=== PATIENT | female | born 1950 | race African-American/Black ===

== ENCOUNTER → 2017-04-22 | Outpatient (CLI) | payer MEDICARE, MEDICAID ==
[~2017-04-22] MED LIST: ALBU8.5H3 INH; ATEN100T PO; ATEN25TA PO; BUSP15TA PO; CEFD300C37 PO; DOXY100C PO; FELO10TA PO; FLEXERIL; GABA-826 PO; GABA300C10 PO; ISOS1POW2 PO; LORA0.5T PO; LORA1TAB PO; MARTAZAPINE PO; OXYC1TAB9 PO; PRED20TA PO; RAME8TAB8 PO; RANI-276 PO; SIMV20TA3 PO; SIMV5TAB5 PO; SPIR25TA3 PO
== END | disposition home or self-care (01) ==
LOC: CFH 09:00
PROVIDERS: ATTEND Family Medicine
DX: I25.10 Atherosclerotic heart disease of native coronary artery without angina pectoris (principal); I34.0 Nonrheumatic mitral (valve) insufficiency; I10 Essential (primary) hypertension
CPT/HCPCS: 93306

== ENCOUNTER → 2017-11-25 | Outpatient (CLI) | payer MEDICARE, MEDICAID ==
[~2017-11-25] MED LIST changes: -ALBU8.5H3 INH; +ALBU8.5H8 INH; +RAME8TAB19 PO; -RAME8TAB8 PO
[2017-11-25 13:04] LABS: ALBUMIN 3.7 g/dL (3.4-5.0); ANION GAP 5 mmol/L (5-15); CALCIUM 9.3 mg/dL (8.5-10.1); CHLORIDE 99 mmol/L (98-107)
[2017-11-25 13:10] LABS: ALANINE AMINOTRANSFERASE 11 U/L (12-78); ALKALINE PHOSPHATASE 86 U/L (45-117); BILIRUBIN,TOTAL 0.4 mg/dL (0.2-1.0); CHOL/HDL RATIO 3.4; CHOLESTEROL, TOTAL 128 mg/dL (140-239); CREATININE 0.94 mg/dL (0.55-1.02); HDL CHOL % 30 % (28-40); HDL CHOLESTEROL (DIRECT) 38 mg/dL (40-60); LDL CHOLESTEROL,CALCULATED 73 mg/dL (54-169); LDL/HDL RATIO 1.9 (0.5-3.0); TOTAL PROTEIN 8.1 g/dL (6.4-8.2); TRIGLYCERIDES 85 mg/dL (50-200); VLDL CHOLESTEROL 17 mg/dL (0-25)
[2017-11-25 13:11] LABS: BASOPHILS # (AUTO) 0.03 x10^3/uL (0-0.1); BASOPHILS % (AUTO) 0 % (0-1); EOSINOPHILS # (AUTO) 0.33 x10^3/uL (0-0.4); EOSINOPHILS % (AUTO) 2 % (1-7); LYMPHOCYTES # (AUTO) 2.86 x10^3/uL (1-3.4); LYMPHOCYTES % (AUTO) 20 % (22-44); MD NO; MEAN CORPUSCULAR HEMOGLOBIN 27.6 pg (27.0-34.8); MEAN PLATELET VOLUME 8.5 fL (7.4-10.4); MONOCYTES # (AUTO) 0.43 x10^3/uL (0.2-0.8); MONOCYTES % (AUTO) 3 % (2-9); NEUTROPHILS # (AUTO) 10.77 x10^3/uL (1.8-6.8); NEUTROPHILS % (AUTO) 75 % (42-75); PLATELET COUNT 288 x10^3/uL (130-400); RED BLOOD COUNT 6.64 x10^6/uL (3.82-5.3); RED CELL DISTRIBUTION WIDTH 17.5 % (9.6-15.2)
[2017-11-25 13:23] LABS: HEMOGLOBIN A1C 6.6 % (4.2-6.3)
== END | disposition home or self-care (01) ==
LOC: CFH 11:11
PROVIDERS: ATTEND Family Medicine
DX: E11.42 Type 2 diabetes mellitus with diabetic polyneuropathy (principal); E78.5 Hyperlipidemia, unspecified; I10 Essential (primary) hypertension
CPT/HCPCS: 36415; 80053; 80061; 82043; 83036; 85025

== ENCOUNTER 2018-11-12 05:44 | Inpatient (IN) | payer MEDICARE, MEDICAID ==
[~2018-11-12] VITALS: Ht 160 cm; Wt 95.1 kg
[~2018-11-12 05:44] MED LIST changes: +OXYC-432 PO; -OXYC1TAB9 PO; -RANI-276 PO; +RANI-448 PO; +SIMV5TAB14 PO; -SIMV5TAB5 PO; -SPIR25TA3 PO; +SPIR25TA5 PO
[2018-11-12] MEDS ORDERED: SODIUM CHLORIDE FLUSH 10ML SYR IVF ONE (06:00)
[2018-11-12] MEDS ORDERED: ONDANSETRON 2MG/ML, 2ML IVPush ONE (06:00)
--- NOTE | 2018-11-12 06:09 | NUR ---
PT TAKEN TO CT AT THIS TIME WITH TECH.
[2018-11-12] MEDS ORDERED: MORPHINE SULFATE 4 MG/ML, 1ML ONE ×2 (06:12→07:56)
[2018-11-12] MEDS ORDERED: ONDANSETRON 2MG/ML, 2ML ONE (06:12)
[2018-11-12] MEDS: MORPHINE SULFATE 4 MG/ML, 1ML IVPush PRN ×2 (06:15→07:59)
--- NOTE | 2018-11-12 06:17 | NUR ---
PT MEDICATED FOR NAUSEA/PAIN. VSS AND SPOUSE AT BEDSIDE.
[2018-11-12] MEDS ORDERED: OMNIPAQUE 350 MG/ML, 100ML BOTTLE ONE (06:23)
[2018-11-12] MEDS ORDERED: SUVO20TA PO (06:31)
[2018-11-12 06:45] LABS: BASOPHILS # (AUTO) 0.08 x10^3/uL (0-0.1); BASOPHILS % (AUTO) 1 % (0-1); EOSINOPHILS % (AUTO) 2 % (1-7); LYMPHOCYTES # (AUTO) 1.54 x10^3/uL (1-3.4); LYMPHOCYTES % (AUTO) 10 % (22-44); MD NO; MEAN CORPUSCULAR HEMOGLOBIN 28.3 pg (27.0-34.8); MEAN CORPUSCULAR VOLUME 88.4 fL (80-100); MEAN PLATELET VOLUME 7.7 fL (7.4-10.4); MONOCYTES # (AUTO) 0.72 x10^3/uL (0.2-0.8); MONOCYTES % (AUTO) 5 % (2-9); NEUTROPHILS % (AUTO) 82 % (42-75); PLATELET COUNT 383 x10^3/uL (130-400); RED BLOOD COUNT 5.46 x10^6/uL (3.82-5.3); RED CELL DISTRIBUTION WIDTH 16.5 % (9.6-15.2)
[2018-11-12 06:57] LABS: INTERNATIONAL NORMALIZED RATIO 1.06 (0.93-1.1); PROTHROMBIN TIME 11.2 Seconds (9.6-11.5)
[2018-11-12 06:58] LABS: ALANINE AMINOTRANSFERASE 10 U/L (12-78); ALBUMIN 2.9 g/dL (3.4-5.0); ANION GAP 6 mmol/L (5-15); CALCIUM 8.8 mg/dL (8.5-10.1); CHLORIDE 100 mmol/L (98-107); CREATININE 0.85 mg/dL (0.55-1.02)
[2018-11-12 07:03] LABS: ALKALINE PHOSPHATASE 75 U/L (45-117); BILIRUBIN,TOTAL 0.2 mg/dL (0.2-1.0); TOTAL PROTEIN 6.7 g/dL (6.4-8.2); TROPONIN I < 0.015 ng/mL (0.000-0.045)
--- NOTE | 2018-11-12 07:10 | NUR ---
bedside report from Marina. Pt has no needs at this time. Awaiting labs. Will monitor.
--- NOTE | 2018-11-12 09:17 | NUR ---
in room for recheck. Pt told she has mass on her ovary. Pt and friend are tearful. Attempted to reassure them. Will be admit. Awaiting bed assignment. Report to Silvia.
--- NOTE | 2018-11-12 09:18 | NUR ---
ASSUMED CARE OF PT. PT AND SIGNIFICANT OTHER ANXIOUS ABOUT DX, DISCUSSED OUTCOMES WITH PT AND SO. WAITING ADMIT CURRENTLY PAIN UNDER CONTROL
[2018-11-12] MEDS ORDERED: ENALAPRILAT 1.25 MG/ML, 2ML IVPush PRN (10:00)
[2018-11-12] MEDS ORDERED: ONDANSETRON 2MG/ML, 2ML IVPush PRN (10:00)
[2018-11-12] MEDS ORDERED: morphine SULFATE 10 MG/ML, 1ML IVPush PRN (10:00)
[2018-11-12] MEDS ORDERED: ACETAMINOPHEN 325 MG TABLET PO PRN (10:00)
[2018-11-12 10:09] LABS: HCT (SEDRATE) 49.3 % (34.6-47.8)
[2018-11-12 10:23] LABS: FREE T4 (FREE THYROXINE) 1.11 ng/dL (0.76-1.46); TROPONIN I < 0.015 ng/mL (0.000-0.045)
[2018-11-12] MEDS: BUSPIRONE HCL 15 MG PO SCH ×3 (11:00→21:00)
[2018-11-12 11:30] VITALS: BP 134/80
[2018-11-12] MEDS ORDERED: ALBUTEROL SULFATE 2.5 MG/3 ML NPPB PRN (11:30)
[2018-11-12] MEDS: ASPIRIN 325 MG TABLET PO SCH (13:13)
[2018-11-12] MEDS: SODIUM CHLORIDE 0.9% 1,000 ML IV SCH ×2 (13:13→21:47)
[2018-11-12] MEDS: KETOROLAC 30 MG/1 ML IV PRN ×2 (13:14→19:42)
[2018-11-12] MEDS: HYDROcodone/APAP 5/325 TABLET PO PRN ×3 (13:14→21:45)
[2018-11-12] MEDS: ENOXAPARIN 40 MG/0.4 ML SQ SCH (13:15)
[2018-11-12 14:53] LABS: MICROSCOPIC NOT IND
[2018-11-12 15:00] LABS: CULTURE INDICATED? NO
[2018-11-12] MEDS: LORazepam 0.5MG TABLET PO SCH ×2 (16:00→21:00)
[2018-11-12 16:18] LABS: RAPID INFLUENZA A Negative (Negative); RAPID INFLUENZA B Negative (Negative)
[2018-11-12] MEDS: GABAPENTIN 300 MG CAPSULE PO SCH ×2 (17:04→21:46)
[2018-11-12 18:47] VITALS: BP 117/71
[2018-11-12 20:31] LABS: TROPONIN I < 0.015 ng/mL (0.000-0.045)
[2018-11-12] MEDS: MIRTAZAPINE 30 MG TAB.RAPDIS PO SCH (21:45)
[2018-11-12] MEDS: ATORVASTATIN 40 MG TABLET PO SCH (21:46)
[2018-11-13 01:21] VITALS: BP 136/83
[2018-11-13] MEDS: KETOROLAC 30 MG/1 ML IV PRN ×3 (01:51→14:38)
[2018-11-13] MEDS: SENNA/DOCUSATE TABLET PO PRN ×2 (01:51→08:39)
[2018-11-13] MEDS: HYDROcodone/APAP 5/325 TABLET PO PRN ×5 (01:51→20:14)
[2018-11-13 05:33] LABS: BASOPHILS # (AUTO) 0.06 x10^3/uL (0-0.1); BASOPHILS % (AUTO) 1 % (0-1); EOSINOPHILS # (AUTO) 0.49 x10^3/uL (0-0.4); EOSINOPHILS % (AUTO) 5 % (1-7); LYMPHOCYTES # (AUTO) 2.58 x10^3/uL (1-3.4); LYMPHOCYTES % (AUTO) 25 % (22-44); MD NO; MEAN CORPUSCULAR HEMOGLOBIN 28.5 pg (27.0-34.8); MEAN CORPUSCULAR HGB CONC 31.8 g/dL (32.4-35.8); MEAN CORPUSCULAR VOLUME 89.6 fL (80-100); MEAN PLATELET VOLUME 7.7 fL (7.4-10.4); MONOCYTES # (AUTO) 0.57 x10^3/uL (0.2-0.8); MONOCYTES % (AUTO) 6 % (2-9); NEUTROPHILS # (AUTO) 6.69 x10^3/uL (1.8-6.8); NEUTROPHILS % (AUTO) 64 % (42-75); PLATELET COUNT 366 x10^3/uL (130-400); RED BLOOD COUNT 5.09 x10^6/uL (3.82-5.3); RED CELL DISTRIBUTION WIDTH 17.1 % (9.6-15.2)
[2018-11-13 05:40] LABS: ALBUMIN 2.8 g/dL (3.4-5.0); CALCIUM 8.7 mg/dL (8.5-10.1); CHLORIDE 103 mmol/L (98-107)
[2018-11-13 05:56] LABS: ALANINE AMINOTRANSFERASE 9 U/L (12-78); ALKALINE PHOSPHATASE 71 U/L (45-117); ANION GAP 6 mmol/L (5-15); BILIRUBIN,TOTAL 0.3 mg/dL (0.2-1.0); CREATININE 0.76 mg/dL (0.55-1.02); TOTAL PROTEIN 6.5 g/dL (6.4-8.2)
[2018-11-13] MEDS: BUSPIRONE HCL 15 MG PO SCH ×4 (06:00→20:01)
[2018-11-13] MEDS: ASPIRIN 325 MG TABLET PO SCH (06:46)
[2018-11-13 07:14] VITALS: BP 125/77
[2018-11-13] MEDS ORDERED: AMLO-150 PO (08:34)
[2018-11-13] MEDS ORDERED: FEXO180T15 PO (08:35)
[2018-11-13] MEDS: ATENOLOL 100 MG TABLET PO SCH (08:39)
[2018-11-13] MEDS: GABAPENTIN 300 MG CAPSULE PO SCH ×3 (08:39→20:14)
[2018-11-13] MEDS: LORazepam 0.5MG TABLET PO SCH ×3 (08:39→20:14)
[2018-11-13] MEDS: ENOXAPARIN 40 MG/0.4 ML SQ SCH (08:39)
[2018-11-13] MEDS ORDERED: FELODIPINE 10 MG PO SCH (09:00)
[2018-11-13] MEDS ORDERED: CETIRIZINE 10 MG TABLET ONE (09:08)
[2018-11-13] MEDS: AMLODIPINE 5 MG TABLET PO SCH (09:10)
[2018-11-13] MEDS: CETIRIZINE 10 MG TABLET PO SCH (09:10)
[2018-11-13] MEDS ORDERED: REGADENOSON 0.4 MG/5 ML SYRINGE ONE (09:17)
[2018-11-13] MEDS: MAGNESIUM HYDROXIDE 8%, 30ML UDC PO PRN (11:31)
[2018-11-13] MEDS: CYCLOBENZAPRINE 10 MG TABLET PO PRN (14:38)
[2018-11-13 15:37] VITALS: BP 120/80
[2018-11-13] MEDS ORDERED: LORazepam 2 MG/ML, 1ML IVPush ONE (17:00)
[2018-11-13 19:44] VITALS: BP 118/69
[2018-11-13] MEDS: MIRTAZAPINE 30 MG TAB.RAPDIS PO SCH (20:14)
[2018-11-13] MEDS: ATORVASTATIN 40 MG TABLET PO SCH (20:14)
[2018-11-14] MEDS: HYDROcodone/APAP 5/325 TABLET PO PRN ×6 (00:09→22:50)
[2018-11-14] MEDS: KETOROLAC 30 MG/1 ML IV PRN ×3 (00:09→19:20)
[2018-11-14 02:15] VITALS: BP 134/66
[2018-11-14 05:14] LABS: BASOPHILS # (AUTO) 0.02 x10^3/uL (0-0.1); BASOPHILS % (AUTO) 0 % (0-1); EOSINOPHILS % (AUTO) 5 % (1-7); LYMPHOCYTES # (AUTO) 2.64 x10^3/uL (1-3.4); LYMPHOCYTES % (AUTO) 28 % (22-44); MD NO; MEAN CORPUSCULAR HEMOGLOBIN 28.5 pg (27.0-34.8); MEAN CORPUSCULAR HGB CONC 31.6 g/dL (32.4-35.8); MEAN CORPUSCULAR VOLUME 90.4 fL (80-100); MEAN PLATELET VOLUME 7.8 fL (7.4-10.4); MONOCYTES # (AUTO) 0.24 x10^3/uL (0.2-0.8); MONOCYTES % (AUTO) 3 % (2-9); NEUTROPHILS # (AUTO) 5.98 x10^3/uL (1.8-6.8); NEUTROPHILS % (AUTO) 64 % (42-75); PLATELET COUNT 365 x10^3/uL (130-400); RED BLOOD COUNT 5.37 x10^6/uL (3.82-5.3); RED CELL DISTRIBUTION WIDTH 16.8 % (9.6-15.2)
[2018-11-14] MEDS: ASPIRIN 325 MG TABLET PO SCH (06:27)
[2018-11-14] MEDS: BUSPIRONE 5 MG TABLET PO SCH ×4 (06:41→21:22)
[2018-11-14 07:15] VITALS: BP 119/63
[2018-11-14] MEDS: AMLODIPINE 5 MG TABLET PO SCH (10:15)
[2018-11-14] MEDS: MAGNESIUM HYDROXIDE 8%, 30ML UDC PO PRN (10:15)
[2018-11-14] MEDS: GABAPENTIN 300 MG CAPSULE PO SCH ×3 (10:15→21:22)
[2018-11-14] MEDS: SENNA/DOCUSATE TABLET PO PRN ×2 (10:16→19:20)
[2018-11-14] MEDS: CYCLOBENZAPRINE 10 MG TABLET PO PRN ×2 (10:16→19:20)
[2018-11-14] MEDS: ATENOLOL 100 MG TABLET PO SCH (10:16)
[2018-11-14] MEDS: CETIRIZINE 10 MG TABLET PO SCH (10:16)
[2018-11-14] MEDS: LORazepam 0.5MG TABLET PO SCH ×3 (10:17→21:22)
[2018-11-14] MEDS: ENOXAPARIN 40 MG/0.4 ML SQ SCH (10:17)
[2018-11-14 13:30] VITALS: BP 115/55
[2018-11-14 19:28] VITALS: BP 126/71
[2018-11-14] MEDS ORDERED: BUSPIRONE 10 MG TABLET ONE (21:10)
[2018-11-14] MEDS: ATORVASTATIN 40 MG TABLET PO SCH (21:22)
[2018-11-14] MEDS: MIRTAZAPINE 30 MG TAB.RAPDIS PO SCH (21:28)
[2018-11-15 02:14] VITALS: BP 111/60
[2018-11-15] MEDS: KETOROLAC 30 MG/1 ML IV PRN (03:16)
[2018-11-15] MEDS: HYDROcodone/APAP 5/325 TABLET PO PRN ×4 (03:47→16:02)
[2018-11-15] MEDS: CYCLOBENZAPRINE 10 MG TABLET PO PRN (03:47)
[2018-11-15] MEDS: BUSPIRONE 5 MG TABLET PO SCH ×3 (06:20→16:01)
[2018-11-15] MEDS: ASPIRIN 325 MG TABLET PO SCH (06:20)
[2018-11-15 07:55] VITALS: BP 134/76
[2018-11-15] MEDS: CETIRIZINE 10 MG TABLET PO SCH (08:00)
[2018-11-15] MEDS: LORazepam 0.5MG TABLET PO SCH ×2 (08:00→16:02)
[2018-11-15] MEDS: MAGNESIUM HYDROXIDE 8%, 30ML UDC PO PRN (08:00)
[2018-11-15] MEDS: GABAPENTIN 300 MG CAPSULE PO SCH ×2 (08:00→16:01)
[2018-11-15] MEDS: ATENOLOL 100 MG TABLET PO SCH (08:01)
[2018-11-15] MEDS: AMLODIPINE 5 MG TABLET PO SCH (08:01)
[2018-11-15] MEDS: ENOXAPARIN 40 MG/0.4 ML SQ SCH (10:55)
[2018-11-15] MEDS: SENNA/DOCUSATE TABLET PO PRN (11:55)
[2018-11-15 13:46] VITALS: BP 109/73
[2018-11-15] MEDS ORDERED: CYCL-259 PO (15:39)
[2018-11-15] MEDS ORDERED: GABA300C10 PO (15:43)
== END 2018-11-15 18:01 | disposition home or self-care (01) | DRG 760 ==
LOC: ED 09:03 → EDIP 09:53 → 5SO 11:33 → 3NW 11-13 23:25
PROVIDERS: ADMIT Hospitalist; ATTEND Hospitalist
DX: N83.9 Noninflammatory disorder of ovary, fallopian tube and broad ligament, unspecified (principal); J96.11 Chronic respiratory failure with hypoxia; E87.1 Hypo-osmolality and hyponatremia; E44.1 Mild protein-calorie malnutrition; E66.01 Morbid (severe) obesity due to excess calories; D72.829 Elevated white blood cell count, unspecified; E11.65 Type 2 diabetes mellitus with hyperglycemia; E78.5 Hyperlipidemia, unspecified; G89.29 Other chronic pain; I11.0 Hypertensive heart disease with heart failure; I25.10 Atherosclerotic heart disease of native coronary artery without angina pectoris; I50.9 Heart failure, unspecified; I25.2 Old myocardial infarction; J44.9 Chronic obstructive pulmonary disease, unspecified; K59.09 Other constipation; M48.061 Spinal stenosis, lumbar region without neurogenic claudication; M48.07 Spinal stenosis, lumbosacral region; N28.1 Cyst of kidney, acquired; Z80.1 Family history of malignant neoplasm of trachea, bronchus and lung; Z90.710 Acquired absence of both cervix and uterus; Z91.14 Patient's other noncompliance with medication regimen; Z95.5 Presence of coronary angioplasty implant and graft; Z88.8 Allergy status to other drugs, medicaments and biological substances; Z68.37 Body mass index [BMI] 37.0-37.9, adult
CPT/HCPCS: 36415; 71045; 71275; 72148; 74174; 74175; 76830; 78452; 80053; 81003; 83690; 83735; 84145; 84439; 84443; 84484; 85025; 85379; 85610; 85651; 85730; 86304; 87400; 93005; 93017; G0378; J1650; J1885; J2405; J2785; Q9967; A9502; C9898; J2060; J7030

== ENCOUNTER → 2019-02-26 | Outpatient (CLI) | payer MEDICARE, MEDICAID ==
[~2019-02-26] MED LIST changes: +AMLO-150 PO; +CYCL-259 PO; +FEXO180T15 PO; +SUVO20TA PO
== END | disposition home or self-care (01) ==
LOC: CFH 09:27
PROVIDERS: ATTEND Specialist
DX: N83.202 Unspecified ovarian cyst, left side (principal); Z90.710 Acquired absence of both cervix and uterus
CPT/HCPCS: 76830

== ENCOUNTER → 2019-03-26 | Outpatient (CLI) | payer MEDICARE, MEDICAID | END | disposition home or self-care (01) | LOC: CARD 12:16 | PROVIDERS: ATTEND Internal Medicine | DX: J44.9 Chronic obstructive pulmonary disease, unspecified (principal) | CPT/HCPCS: 94060; 94618; 94726; 94729 ==

== ENCOUNTER → 2019-10-22 | Outpatient (CLI) | payer MEDICARE, MEDICAID ==
[~2019-10-22] MED LIST changes: +ESTR0.5T PO; +TIOT18CA INH
[2019-10-22 13:23] LABS: ALBUMIN 3.1 g/dL (3.4-5.0); ANION GAP 7 mmol/L (5-15); CALCIUM 8.5 mg/dL (8.5-10.1); CHLORIDE 96 mmol/L (98-107)
[2019-10-22 13:30] LABS: ALANINE AMINOTRANSFERASE 10 U/L (12-78); ALKALINE PHOSPHATASE 77 U/L (45-117); BILIRUBIN,TOTAL 0.4 mg/dL (0.2-1.0); CHOL/HDL RATIO 3.5; CHOLESTEROL, TOTAL 125 mg/dL (140-239); CREATININE 0.86 mg/dL (0.55-1.02); HDL CHOL % 29 % (28-40); HDL CHOLESTEROL (DIRECT) 36 mg/dL (40-60); LDL CHOLESTEROL,CALCULATED 72 mg/dL (54-169); MICROSCOPIC AUTO; TOTAL PROTEIN 7.2 g/dL (6.4-8.2); TRIGLYCERIDES 84 mg/dL (50-200); VLDL CHOLESTEROL 17 mg/dL (0-25)
[2019-10-22 14:47] LABS: BASOPHILS # (AUTO) 0.03 x10^3/uL (0-0.1); BASOPHILS % (AUTO) 0 % (0-1); EOSINOPHILS # (AUTO) 0.07 x10^3/uL (0-0.4); EOSINOPHILS % (AUTO) 1 % (1-7); LYMPHOCYTES # (AUTO) 1.99 x10^3/uL (1-3.4); LYMPHOCYTES % (AUTO) 23 % (22-44); MD SCAN; MEAN CORPUSCULAR HEMOGLOBIN 23.9 pg (27.0-34.8); MONOCYTES # (AUTO) 0.31 x10^3/uL (0.2-0.8); MONOCYTES % (AUTO) 4 % (2-9); NEUTROPHILS % (AUTO) 72 % (42-75); PLATELET COUNT 332 x10^3/uL (130-400); RED BLOOD COUNT 7.18 x10^6/uL (3.82-5.3); RED CELL DISTRIBUTION WIDTH 21.5 % (9.6-15.2)
[2019-10-22 16:33] LABS: MEAN CORPUSCULAR HGB CONC 28.8 g/dL (32.4-35.8)
== END | disposition home or self-care (01) ==
LOC: CFH 08:56
PROVIDERS: ATTEND Family Medicine
DX: Z12.31 Encounter for screening mammogram for malignant neoplasm of breast (principal); M85.88 Other specified disorders of bone density and structure, other site; E11.42 Type 2 diabetes mellitus with diabetic polyneuropathy; E78.5 Hyperlipidemia, unspecified; I10 Essential (primary) hypertension; J44.9 Chronic obstructive pulmonary disease, unspecified
CPT/HCPCS: 36415; 77080; 80053; 80061; 81001; 82043; 83036; 85025; 93306; 77067

== ENCOUNTER 2021-05-10 14:32 | Inpatient (IN) | payer MEDICARE, MEDICAID ==
[~2021-05-10] VITALS: Ht 160 cm; Wt 98.9 kg
[~2021-05-10 14:32] MED LIST changes: +ACET325T26 PO; +ACID1TAB7 PO; +AMOX1TAB64 PO; +CARV6.2512 PO; -CYCL-259 PO; +CYCL10TA2 PO; -FELO10TA PO; +FELO10TA4 PO; +METH4TAB2 PO; +MIRT30TA97 PO; +MOME17SP NAS; -OXYC-432 PO; +OXYC1TAB18 PO; -RANI-448 PO; +RANI-460 PO; +SIMV20TA19 PO; -SIMV20TA3 PO
--- NOTE | 2021-05-10 14:51 | NUR ---
BIB [facility] FROM HOME. PT HAS C/O SOB X3 DAYS. HX CHF, COPD, DM, HTN, ASTHMA. PT BASELINE O2 IS 4 LNC. [facility] REPORTS WHEEZING, WHICH THEY GAVE PT AN ALBUTEROL TX. 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 PT HAS 20G L HAND LOCKED. LAST BP WAS 146/50, 92% ON 2L NC. PT PLACED IN HOSPITAL GOWN, IS ON CARDIAC, BP AND SPO2 MONITOR. PA BEDSIDE.
[2021-05-10] MEDS ORDERED: methylPREDNISolone SOD SUCC 125 MG/2 ML ONE (15:00)
[2021-05-10] MEDS ORDERED: methylPREDNISolone SOD SUCC 125 MG/2 ML IV ONE (15:00)
[2021-05-10] MEDS ORDERED: ALBUTEROL/IPRATROPIUM 2.5MG/0.5MG, 3 ML NPPB ONE (15:00)
[2021-05-10] MEDS ORDERED: SODIUM CHLORIDE FLUSH 10ML SYR IVF ONE (15:00)
[2021-05-10 15:23] LABS: BASOPHILS % (AUTO) 0 % (0-1); EOSINOPHILS % (AUTO) 1 % (1-7); LYMPHOCYTES % (AUTO) 12 % (22-44); MEAN CORPUSCULAR HEMOGLOBIN 28.2 pg (27.0-34.8); MEAN CORPUSCULAR HGB CONC 31.2 g/dL (32.4-35.8); MEAN PLATELET VOLUME 7.4 fL (7.4-10.4); MONOCYTES % (AUTO) 9 % (2-9); NEUTROPHILS % (AUTO) 77 % (42-75); PLATELET COUNT 271 x10^3/uL (130-400); RED BLOOD COUNT 4.44 x10^6/uL (3.82-5.3); RED CELL DISTRIBUTION WIDTH 14.4 % (9.6-15.2)
--- NOTE | 2021-05-10 15:31 | NUR ---
PT MEDICATED PER BUFFY WHITE, CALL LIGHT W/IN REACH.
[2021-05-10 15:38] LABS: ALANINE AMINOTRANSFERASE 13 U/L (12-78); ALBUMIN 3.1 g/dL (3.4-5.0); ANION GAP 2 mmol/L (5-15); CALCIUM 8.9 mg/dL (8.5-10.1); CHLORIDE 93 mmol/L (98-107)
[2021-05-10 15:43] LABS: ALKALINE PHOSPHATASE 63 U/L (45-117); BILIRUBIN,TOTAL 0.3 mg/dL (0.2-1.0); CREATININE 0.52 mg/dL (0.55-1.02); TOTAL PROTEIN 7.5 g/dL (6.4-8.2); TROPONIN I < 0.015 ng/mL (0.000-0.045)
--- NOTE | 2021-05-10 16:09 | NUR ---
PT UP TO BATHROOM VIA BSC. WHEN GETTING INTO BED PT BECAME VERY ANXIOUS AND STATES, "I CAN'T BREATHE" SHE SLOWLY BEGINGS TO DESAT, AND WILL NOT FOLLOW INSTRUCTION. SHANA ALEXANDRA CALL TO GET ASSISTANCE PT WAS NOW IN 50'S AND KEPT REMOVING OXYGEN. STAFF CAME IN, INCLUDING RT AND MD AND SHANA ALEXANDRA CANCELED. PT ARM HELD AND NONREBREATHER PRESENT W/ OXYGEN INCREASED TO 15L. PT FINALLY WENT INTO 90'S. RT PRESENT NOW.
[2021-05-10] MEDS ORDERED: LORazepam 2 MG/ML, 1ML IVPush ONE (16:30)
[2021-05-10] MEDS ORDERED: LORazepam 2 MG/ML, 1ML ONE (16:34)
[2021-05-10] MEDS ORDERED: AZITHROMYCIN 500 MG in SODIUM CHLORIDE 0.9% 250 ML IVPB ONE (17:00)
--- NOTE | 2021-05-10 17:34 | NUR ---
ASSUMED CARE OF PATIENT. PT DROWSY AND NOT ANSWER QUESTIONS. DR BRUCE TO BEDSIDE. RT TO BEDSIDE. PT INTUBATED WITH 8F TUBE, 24 AT THE LIP. CLASSIFICATION INSPECTOR ON. NSR NOTED. VENT SETTINGS: 80%, 400, RATE 20,
--- NOTE | 2021-05-10 17:36 | NUR ---
SETTING UP FOR EMERGENT CENTRAL LINE PER DR BRUCE
--- NOTE | 2021-05-10 17:45 | NUR ---
LAB IN ROOM
[2021-05-10] MEDS: PROPOFOL 100 ML IV PRN ×3 (17:51→20:34)
[2021-05-10] MEDS ORDERED: SUCCINYLCHOLINE 20 MG/ML, 10ML IVPush ONE (18:00)
[2021-05-10] MEDS ORDERED: MIDAZOLAM 1 MG/ML, 2ML IVPush ONE (18:00)
[2021-05-10] MEDS ORDERED: ETOMIDATE 20 MG/10 ML IV ONE (18:00)
[2021-05-10] MEDS ORDERED: CEFTRIAXONE 1,000 MG in DEXTROSE 5% 50 ML IVPB ONE (18:00)
--- NOTE | 2021-05-10 18:21 | NUR ---
Brenda arteaga in [facility] - 05/10/21 at 1843 by SHARON BOTH BLOOD CULTURES DRAWN BEFORE ABX GIVEN
[2021-05-10] MEDS ORDERED: NOREPINEPHRINE 8 MG in SODIUM CHLORIDE 0.9% 242 ML IV PRN (18:30)
[2021-05-10] MEDS ORDERED: VECURONIUM 10 MG IVPush ONE (18:30)
[2021-05-10] MEDS: NOREPINEPHRINE 8 MG in SODIUM CHLORIDE 0.9% 242 ML IV PRN ×2 (18:39→19:21)
--- NOTE | 2021-05-10 18:43 | NUR ---
LAB IN ROOM, STILL NEED ONE BLOOD CULTURE
--- NOTE | 2021-05-10 18:48 | NUR ---
SECOND BLOOD CULTURE VANNESSA AT 1846
--- NOTE | 2021-05-10 18:51 | NUR ---
CENTRAL LINE OKAY TO USE PER DR BRUCE
[2021-05-10] MEDS ORDERED: LIDOCAINE-MPF 1%, 2ML ENDO PRN (19:00)
[2021-05-10] MEDS ORDERED: SENNA/DOCUSATE TABLET NG PRN (19:00)
[2021-05-10] MEDS ORDERED: DEXTROSE 50%, 50ML SYRINGE IVPush PRN (19:00)
[2021-05-10] MEDS ORDERED: LACTULOSE 20 GM/30 ML UDC NG PRN (19:00)
[2021-05-10] MEDS ORDERED: DEXTROSE 4 GM TAB.CHEW PO PRN (19:00)
[2021-05-10] MEDS ORDERED: PHARMACY MAY ADJ FOR RENAL FX MC SCH (19:00)
[2021-05-10] MEDS ORDERED: SENNA 176 MG/5 ML ORAL SOL NG PRN (19:00)
[2021-05-10] MEDS ORDERED: GLUCAGON 1 MG IM PRN (19:00)
[2021-05-10] MEDS ORDERED: BISACODYL 10 MG SUPP PR PRN (19:00)
--- NOTE | 2021-05-10 19:19 | NUR ---
COVID TEST SENT. PT HAS BEEN SENT BY HOSPITALIST. OG REMOVED AND REPLACED PER DR BRUCE NOT SEEN ON XRAY.
--- NOTE | 2021-05-10 19:29 | NUR ---
VENT SETTINGS: 50%, PEEP OF 5, RATE 20, PULSE OX 100%
[2021-05-10] MEDS ORDERED: methylPREDNISolone SOD SUCC 125 MG/2 ML IVPush SCH (19:30)
--- NOTE | 2021-05-10 19:39 | NUR ---
TALK TO THE HOSITALIST, PROVIDER AWARE OF NEW OG
--- NOTE | 2021-05-10 19:42 | NUR ---
NECKLACE AND BRACELET PLACED IN PT'S BELONGINGS BAG
[2021-05-10] MEDS: AZITHROMYCIN 500 MG in SODIUM CHLORIDE 0.9% 250 ML IV SCH (19:46)
--- NOTE | 2021-05-10 19:57 | NUR ---
REPORT CALLED INTO [facility] RN
--- NOTE | 2021-05-10 19:59 | NUR ---
DR FISCHER AWARE OF NEW OG PLACED, NO NEW ORDERS AT THIS TIME. NAILA PRIMARY CCU RN AWARE OF NEW OG. CLEAR/YELLOW FLUID COMING FROM SUCTION 150 CC.
[2021-05-10] MEDS: INSULIN REGULAR 100 UNITS/ML, 3ML VIAL SQ-INSULIN SCH (21:00)
[2021-05-10] MEDS: SODIUM CHLORIDE FLUSH 10ML SYR IVF SCH (22:28)
[2021-05-10] MEDS: ENOXAPARIN 40 MG/0.4 ML SQ SCH (22:28)
[2021-05-11] MEDS ORDERED: FENTANYL PF 100 MCG/2ML ONE (00:08)
[2021-05-11] MEDS: FENTANYL PF 1,000 MCG in SODIUM CHLORIDE 0.9% 80 ML IV PRN ×3 (00:13→22:30)
[2021-05-11] MEDS ORDERED: FENTANYL PF 100 MCG/2ML IVPush ONE (00:30)
[2021-05-11] MEDS: PROPOFOL 100 ML IV PRN ×6 (01:17→19:31)
[2021-05-11] MEDS: ALBUTEROL/IPRATROPIUM 2.5MG/0.5MG, 3 ML NPPB SCH ×6 (02:00→22:38)
[2021-05-11 05:52] LABS: BASOPHILS % (AUTO) 0 % (0-1); EOSINOPHILS % (AUTO) 0 % (1-7); LYMPHOCYTES % (AUTO) 8 % (22-44); MEAN CORPUSCULAR HEMOGLOBIN 28.5 pg (27.0-34.8); MEAN CORPUSCULAR HGB CONC 32.2 g/dL (32.4-35.8); MEAN PLATELET VOLUME 8.2 fL (7.4-10.4); MONOCYTES % (AUTO) 2 % (2-9); NEUTROPHILS % (AUTO) 91 % (42-75); PLATELET COUNT 276 x10^3/uL (130-400); RED BLOOD COUNT 4.01 x10^6/uL (3.82-5.3); RED CELL DISTRIBUTION WIDTH 13.9 % (9.6-15.2)
[2021-05-11 05:55] LABS: ANION GAP 2 mmol/L (5-15); CALCIUM 8.7 mg/dL (8.5-10.1); CHLORIDE 94 mmol/L (98-107); CREATININE 0.58 mg/dL (0.55-1.02)
[2021-05-11] MEDS ORDERED: POTASSIUM PHOSPHATE 22 MEQ in SODIUM CHLORIDE 0.9% 500 ML IV ONE (06:30)
[2021-05-11] MEDS ORDERED: MAGNESIUM SULFATE PMX 2GM/50ML 50 ML IV ONE (06:30)
[2021-05-11] MEDS: INSULIN REGULAR 100 UNITS/ML, 3ML VIAL SQ-INSULIN SCH ×4 (06:46→20:26)
[2021-05-11 07:19] LABS: C-REACTIVE PROTEIN, QUANT 3.6 mg/dL (0.02-0.49)
[2021-05-11] MEDS: methylPREDNISolone SOD SUCC 40 MG/ML IVPush SCH ×3 (07:20→22:49)
[2021-05-11] MEDS: SODIUM CHLORIDE FLUSH 10ML SYR IVF SCH ×2 (08:15→19:30)
[2021-05-11] MEDS: PANTOPRAZOLE 40 MG IV IVPush SCH (08:15)
[2021-05-11] MEDS: CEFTRIAXONE 1,000 MG in DEXTROSE 5% 50 ML IVPB SCH (08:15)
[2021-05-11] MEDS ORDERED: CEFTRIAXONE 1,000 MG IVPB SCH (09:00)
--- NOTE | 2021-05-11 09:48 | NUR ---
Tube Feeds: Vital HP: goal: 40 ml/hr on propofol, 50 ml/hr off propofol Addendum: 05/11/21 at [address] Amended: Links added.
[2021-05-11] MEDS: DEXMEDETOMIDINE 400 MCG in SODIUM CHLORIDE 0.9% 96 ML IV PRN ×3 (10:56→20:23)
[2021-05-11] MEDS ORDERED: hydrALAzine 20 MG/ML, 1ML ONE (12:34)
[2021-05-11] MEDS: hydrALAzine 20 MG/ML, 1ML IV PRN ×2 (12:48→19:54)
[2021-05-11] MEDS: BUSPIRONE 5 MG TABLET PO SCH ×3 (13:05→20:02)
[2021-05-11] MEDS: ENOXAPARIN 40 MG/0.4 ML SQ SCH (19:30)
[2021-05-11] MEDS: AZITHROMYCIN 500 MG in SODIUM CHLORIDE 0.9% 250 ML IV SCH (19:30)
[2021-05-11] MEDS: MIRTAZAPINE 15 MG TABLET PO SCH (20:02)
[2021-05-12] MEDS: PROPOFOL 100 ML IV PRN ×4 (00:22→18:49)
[2021-05-12] MEDS: DEXMEDETOMIDINE 1,000 MCG in SODIUM CHLORIDE 0.9% 240 ML IV PRN ×4 (00:23→23:41)
[2021-05-12] MEDS: hydrALAzine 20 MG/ML, 1ML IV PRN ×5 (01:05→16:42)
[2021-05-12] MEDS: ALBUTEROL/IPRATROPIUM 2.5MG/0.5MG, 3 ML NPPB SCH ×6 (02:26→22:44)
[2021-05-12 05:31] LABS: BASOPHILS % (AUTO) 0 % (0-1); EOSINOPHILS % (AUTO) 0 % (1-7); LYMPHOCYTES % (AUTO) 3 % (22-44); MEAN CORPUSCULAR HEMOGLOBIN 28.3 pg (27.0-34.8); MEAN CORPUSCULAR HGB CONC 32.6 g/dL (32.4-35.8); MEAN PLATELET VOLUME 8.3 fL (7.4-10.4); MONOCYTES % (AUTO) 4 % (2-9); NEUTROPHILS % (AUTO) 93 % (42-75); PLATELET COUNT 313 x10^3/uL (130-400); RED BLOOD COUNT 4.48 x10^6/uL (3.82-5.3); RED CELL DISTRIBUTION WIDTH 14.8 % (9.6-15.2)
[2021-05-12 05:41] LABS: ANION GAP 4 mmol/L (5-15); CALCIUM 8.7 mg/dL (8.5-10.1); CHLORIDE 99 mmol/L (98-107); CREATININE 0.56 mg/dL (0.55-1.02)
[2021-05-12] MEDS: BUSPIRONE 5 MG TABLET PO SCH ×4 (05:58→21:19)
[2021-05-12] MEDS: methylPREDNISolone SOD SUCC 40 MG/ML IVPush SCH ×3 (05:58→21:40)
[2021-05-12] MEDS: INSULIN REGULAR 100 UNITS/ML, 3ML VIAL SQ-INSULIN SCH ×3 (05:59→13:47)
[2021-05-12] MEDS ORDERED: ENALAPRILAT 1.25 MG/ML, 2ML IV ONE (06:00)
[2021-05-12] MEDS: CEFTRIAXONE 1,000 MG in DEXTROSE 5% 50 ML IVPB SCH (08:37)
[2021-05-12] MEDS: PANTOPRAZOLE 40 MG IV IVPush SCH (09:11)
[2021-05-12] MEDS: LISINOPRIL 20 MG TABLET PO SCH ×2 (09:12→21:19)
[2021-05-12] MEDS: SODIUM CHLORIDE FLUSH 10ML SYR IVF SCH ×2 (09:12→21:19)
[2021-05-12] MEDS: FENTANYL PF 1,000 MCG in SODIUM CHLORIDE 0.9% 80 ML IV PRN ×2 (09:57→20:31)
[2021-05-12] MEDS ORDERED: REMDESIVIR 200 MG in SODIUM CHLORIDE 0.9% 250 ML IVPB ONE (12:00)
[2021-05-12] MEDS ORDERED: POTASSIUM CHLORIDE 20 MEQ TAB.ER.PRT PO ONE (13:00)
[2021-05-12] MEDS ORDERED: FUROSEMIDE 40 MG/4 ML IV ONE (13:00)
[2021-05-12] MEDS ORDERED: POTASSIUM CHLORIDE 20 MEQ PACKET ONE (13:36)
[2021-05-12] MEDS ORDERED: INSULIN LISPRO 100 UNITS/ML, PEN SQ-INSULIN SCH (16:00)
[2021-05-12] MEDS: ENOXAPARIN 40 MG/0.4 ML SQ SCH (16:15)
[2021-05-12] MEDS: AZITHROMYCIN 500 MG in SODIUM CHLORIDE 0.9% 250 ML IV SCH (19:40)
[2021-05-12] MEDS: MIRTAZAPINE 15 MG TABLET PO SCH (21:21)
[2021-05-12] MEDS: INSULIN LISPRO 100 UNITS/ML, PEN SQ-INSULIN SCH (21:38)
[2021-05-13] MEDS: PROPOFOL 100 ML IV PRN ×2 (00:17→02:03)
[2021-05-13] MEDS: hydrALAzine 20 MG/ML, 1ML IV PRN ×2 (00:36→21:56)
[2021-05-13] MEDS: INSULIN LISPRO 100 UNITS/ML, PEN SQ-INSULIN SCH ×4 (02:05→20:49)
[2021-05-13] MEDS: ALBUTEROL/IPRATROPIUM 2.5MG/0.5MG, 3 ML NPPB SCH ×5 (02:37→18:00)
[2021-05-13 05:01] LABS: BASOPHILS % (AUTO) 0 % (0-1); EOSINOPHILS % (AUTO) 0 % (1-7); LYMPHOCYTES % (AUTO) 2 % (22-44); MEAN CORPUSCULAR HEMOGLOBIN 27.4 pg (27.0-34.8); MEAN CORPUSCULAR HGB CONC 31.4 g/dL (32.4-35.8); MEAN PLATELET VOLUME 8.1 fL (7.4-10.4); MONOCYTES % (AUTO) 3 % (2-9); NEUTROPHILS % (AUTO) 95 % (42-75); PLATELET COUNT 336 x10^3/uL (130-400); RED CELL DISTRIBUTION WIDTH 14.6 % (9.6-15.2)
[2021-05-13] MEDS: BUSPIRONE 5 MG TABLET PO SCH ×4 (05:12→20:45)
[2021-05-13] MEDS: ENOXAPARIN 40 MG/0.4 ML SQ SCH ×2 (05:12→18:05)
[2021-05-13 05:15] LABS: CHLORIDE 99 mmol/L (98-107)
[2021-05-13 05:21] LABS: ANION GAP 9 mmol/L (5-15); CALCIUM 8.5 mg/dL (8.5-10.1); CREATININE 0.55 mg/dL (0.55-1.02); TRIGLYCERIDES 189 mg/dL (50-200)
[2021-05-13] MEDS: DEXMEDETOMIDINE 1,000 MCG in SODIUM CHLORIDE 0.9% 240 ML IV PRN (07:43)
[2021-05-13] MEDS: METHYLNALTREXONE 12 MG/0.6 ML SYR SQ SCH (08:21)
[2021-05-13] MEDS: LISINOPRIL 20 MG TABLET PO SCH ×2 (08:21→20:45)
[2021-05-13] MEDS: PANTOPRAZOLE 40 MG IV IVPush SCH (08:21)
[2021-05-13] MEDS: methylPREDNISolone SOD SUCC 40 MG/ML IVPush SCH ×2 (08:21→20:44)
[2021-05-13] MEDS: CEFTRIAXONE 1,000 MG in DEXTROSE 5% 50 ML IVPB SCH (08:22)
[2021-05-13] MEDS: SODIUM CHLORIDE FLUSH 10ML SYR IVF SCH ×2 (08:22→20:45)
[2021-05-13] MEDS ORDERED: SODIUM CHLORIDE INHALATION 7%, 4 ML NPPB PRN (08:30)
[2021-05-13] MEDS ORDERED: METOCLOPRAMIDE 5 MG/ML, 2ML IV SCH (09:00)
[2021-05-13] MEDS ORDERED: REMDESIVIR 100 MG in SODIUM CHLORIDE 0.9% 250 ML IVPB SCH (11:00)
[2021-05-13 18:49] LABS: CLOSTRIDIUM DIFFICILE ANTIGEN NEGATIVE; CLOSTRIDIUM DIFFICILE TOXIN NEGATIVE (Negative)
[2021-05-13] MEDS: AZITHROMYCIN 500 MG in SODIUM CHLORIDE 0.9% 250 ML IV SCH (19:46)
[2021-05-13] MEDS: MIRTAZAPINE 15 MG TABLET PO SCH (20:45)
[2021-05-13] MEDS: LORATADINE 10 MG TABLET PO PRN (22:33)
[2021-05-13] MEDS: GABAPENTIN 100 MG CAPSULE PO SCH (22:33)
[2021-05-13] MEDS: OXYcodone/APAP 5/325MG TABLET PO PRN (22:37)
[2021-05-14] MEDS: OXYcodone/APAP 5/325MG TABLET PO PRN ×3 (02:08→20:09)
[2021-05-14] MEDS: INSULIN LISPRO 100 UNITS/ML, PEN SQ-INSULIN SCH ×4 (02:59→20:13)
[2021-05-14 04:39] LABS: ANION GAP 2 mmol/L (5-15); CHLORIDE 103 mmol/L (98-107); CREATININE 0.73 mg/dL (0.55-1.02)
[2021-05-14] MEDS: ENOXAPARIN 40 MG/0.4 ML SQ SCH ×2 (05:59→17:14)
[2021-05-14] MEDS: GABAPENTIN 100 MG CAPSULE PO SCH ×4 (05:59→20:08)
[2021-05-14] MEDS: BUSPIRONE 5 MG TABLET PO SCH ×4 (05:59→20:08)
[2021-05-14] MEDS: ALBUTEROL/IPRATROPIUM 2.5MG/0.5MG, 3 ML NPPB SCH ×4 (07:30→20:00)
[2021-05-14] MEDS: LISINOPRIL 20 MG TABLET PO SCH ×2 (08:52→20:10)
[2021-05-14] MEDS: SODIUM CHLORIDE FLUSH 10ML SYR IVF SCH ×2 (08:52→21:00)
[2021-05-14] MEDS: METHYLNALTREXONE 12 MG/0.6 ML SYR SQ SCH ×2 (08:52→09:10)
[2021-05-14] MEDS: methylPREDNISolone SOD SUCC 40 MG/ML IVPush SCH (08:52)
[2021-05-14] MEDS: CETIRIZINE 10 MG TABLET PO SCH (08:52)
[2021-05-14] MEDS: PANTOPRAZOLE 40 MG IV IVPush SCH (08:52)
[2021-05-14] MEDS: CEFTRIAXONE 1,000 MG in DEXTROSE 5% 50 ML IVPB SCH (09:34)
[2021-05-14 15:06] VITALS: BP 147/84
[2021-05-14] MEDS: LORATADINE 10 MG TABLET PO PRN (20:08)
[2021-05-14] MEDS: MIRTAZAPINE 15 MG TABLET PO SCH (20:10)
[2021-05-14 20:19] VITALS: BP 170/95
[2021-05-14] MEDS: AZITHROMYCIN 500 MG in SODIUM CHLORIDE 0.9% 250 ML IV SCH (20:37)
[2021-05-14 23:14] VITALS: BP 172/78
[2021-05-14] MEDS: hydrALAzine 20 MG/ML, 1ML IV PRN (23:14)
[2021-05-15 00:15] VITALS: BP 160/80
[2021-05-15] MEDS: OXYcodone/APAP 5/325MG TABLET PO PRN ×3 (02:16→14:41)
[2021-05-15] MEDS: INSULIN LISPRO 100 UNITS/ML, PEN SQ-INSULIN SCH ×3 (03:00→14:43)
[2021-05-15] MEDS ORDERED: hydrALAzine 20 MG/ML, 1ML IV PRN (05:00)
[2021-05-15 06:10] LABS: BASOPHILS % (AUTO) 0 % (0-1); EOSINOPHILS % (AUTO) 0 % (1-7); LYMPHOCYTES % (AUTO) 17 % (22-44); MEAN CORPUSCULAR HGB CONC 31.8 g/dL (32.4-35.8); MEAN PLATELET VOLUME 8.3 fL (7.4-10.4); MONOCYTES % (AUTO) 10 % (2-9); NEUTROPHILS % (AUTO) 73 % (42-75); PLATELET COUNT 295 x10^3/uL (130-400); RED BLOOD COUNT 4.35 x10^6/uL (3.82-5.3); RED CELL DISTRIBUTION WIDTH 14.7 % (9.6-15.2)
[2021-05-15] MEDS: ENOXAPARIN 40 MG/0.4 ML SQ SCH (06:28)
[2021-05-15] MEDS: BUSPIRONE 5 MG TABLET PO SCH ×3 (06:28→16:15)
[2021-05-15] MEDS: GABAPENTIN 100 MG CAPSULE PO SCH ×3 (06:28→16:14)
[2021-05-15] MEDS: ALBUTEROL/IPRATROPIUM 2.5MG/0.5MG, 3 ML NPPB SCH ×2 (06:31→10:27)
[2021-05-15 06:35] LABS: ANION GAP 5 mmol/L (5-15); CHLORIDE 101 mmol/L (98-107)
[2021-05-15 07:16] VITALS: BP 148/72
[2021-05-15] MEDS: CETIRIZINE 10 MG TABLET PO SCH (07:48)
[2021-05-15] MEDS: PANTOPRAZOLE 40 MG IV IVPush SCH (07:48)
[2021-05-15] MEDS: LISINOPRIL 20 MG TABLET PO SCH (07:48)
[2021-05-15] MEDS: SODIUM CHLORIDE FLUSH 10ML SYR IVF SCH (07:51)
[2021-05-15] MEDS: CEFTRIAXONE 1,000 MG in DEXTROSE 5% 50 ML IVPB SCH (07:52)
[2021-05-15] MEDS ORDERED: CARVEDILOL 6.25 MG TABLET PO SCH (08:00)
[2021-05-15] MEDS ORDERED: methylPREDNISolone SOD SUCC 40 MG/ML IVPush SCH (09:00)
[2021-05-15] MEDS ORDERED: AMOX1TAB61 PO (12:53)
[2021-05-15] MEDS ORDERED: PRED20TA PO (12:53)
[2021-05-15 14:44] VITALS: BP 162/92
[2021-05-16] MEDS ORDERED: PANTOPRAZOLE 40MG TABLET PO SCH (06:00)
== END 2021-05-15 16:34 | disposition home or self-care (01) | DRG 208 ==
LOC: ED 15:01 → SUATTDRO 18:34 → EDIP 20:17 → CCU 20:21 → 3N 05-14 13:40
PROVIDERS: ADMIT Student in an Organized Health Care Education/Training Program; ATTEND Hospitalist
PROC: 5A1945Z Respiratory Ventilation, 24-96 Consecutive Hours (ICD-10-PCS; principal; 2021-05-10)
PROC: 0BH17EZ Insertion of Endotracheal Airway into Trachea, Via Natural or Artificial Opening (ICD-10-PCS; 2021-05-10)
PROC: 02H633Z Insertion of Infusion Device into Right Atrium, Percutaneous Approach (ICD-10-PCS; 2021-05-10)
PROC: B548ZZA Ultrasonography of Superior Vena Cava, Guidance (ICD-10-PCS; 2021-05-10)
PROC: 5A0935A Assistance with Respiratory Ventilation, Less than 24 Consecutive Hours, High Flow/Velocity Cannula (ICD-10-PCS; 2021-05-10)
DX: J96.21 Acute and chronic respiratory failure with hypoxia (principal); J18.9 Pneumonia, unspecified organism; J44.1 Chronic obstructive pulmonary disease with (acute) exacerbation; Z99.11 Dependence on respirator [ventilator] status; J44.0 Chronic obstructive pulmonary disease with (acute) lower respiratory infection; I50.42 Chronic combined systolic (congestive) and diastolic (congestive) heart failure; E87.1 Hypo-osmolality and hyponatremia; K56.7 Ileus, unspecified; I47.1 Supraventricular tachycardia; Z20.822 Contact with and (suspected) exposure to COVID-19; I11.0 Hypertensive heart disease with heart failure; I25.2 Old myocardial infarction; E78.5 Hyperlipidemia, unspecified; I25.10 Atherosclerotic heart disease of native coronary artery without angina pectoris; E11.9 Type 2 diabetes mellitus without complications; F17.210 Nicotine dependence, cigarettes, uncomplicated; E66.01 Morbid (severe) obesity due to excess calories; J96.22 Acute and chronic respiratory failure with hypercapnia; D64.9 Anemia, unspecified; E83.42 Hypomagnesemia; E83.39 Other disorders of phosphorus metabolism; Z88.8 Allergy status to other drugs, medicaments and biological substances; Z95.5 Presence of coronary angioplasty implant and graft; Z90.710 Acquired absence of both cervix and uterus; Z79.899 Other long term (current) drug therapy; Z99.81 Dependence on supplemental oxygen
CPT/HCPCS: 31500; 36415; 36556; 36600; 71045; 80048; 80053; 82803; 82962; 83605; 83615; 83735; 83880; 84100; 84478; 84484; 85025; 85379; 86140; 87040; 87070; 87081; 87205; 87324; 92950; 93005; 94002; 94003; 94640; 96374; 96375; G0378; J0456; J0696; J1650; J1815; J1940; J2250; J2704; J3010; U0005; C9113; J0330; J0360; J2060; J2765; J2920; J2930; J3475; J7040; J7050; U0003